=== PATIENT | male | born 1970 | race Caucasian/White ===

== ENCOUNTER 2018-03-03 11:56 | Day surgery (SDC) | payer OTHER ==
[~2018-03-03] VITALS: Ht 190.5 cm; Wt 105.0 kg
[2018-03-03] MEDS ORDERED: VITAMIN B (12:25)
[2018-03-03] MEDS ORDERED: OMEPRAZOLE (12:25)
[2018-03-03] MEDS ORDERED: MAGNESIUM CITRATE (12:26)
[2018-03-03 12:35] VITALS: BP 147/89; PULSE 71; RESP 36
--- NOTE | 2018-03-03 12:42 | PREAC ---
Date/Time of Note Date/Time of Note DATE: 03/03/18 TIME: 12:41 Anesthesia Eval and Record Evaluation Time Pre-Procedure Interview DATE: 03/03/18 TIME: 12:41 Age 47 Sex male NPO: 8 hrs Preoperative diagnosis gerd, abdominal pain Planned procedure egd and biopsies Past Medical History Past Medical History: Includes (gerd) Surgery & Anesthesia Issues No known issue Meds Anticoagulation: No Beta Yamileth within 24 hr: No Reason Beta Yamileth not given: Pt. not on B-Yamileth Reported Medications [Magnesium Citrate] No Conflict Check 03/03/18 [Vitamin B] No Conflict Check 03/03/18 [Omeprazole] No Conflict Check 03/03/18 Meds reviewed: Yes Allergies Coded Allergies: clarithromycin (Verified Allergy, Intermediate, HEADACHE, 03/03/18) Allergies Reviewed: Yes Labs/Studies Labs Reviewed: Reviewed by anesthesiologist test: N/A Pre-procedure Exam Airway: Adequate mouth opening, Adequate thyromental dist Mallampati: Mallampati II Teeth: Normal Lung: Normal Heart: Normal ASA Physical Status ASA physical status: 1 Emergency: None Planned Anesthetic General/MAC: MAC Planned Pain Management Parenteral pain med Pre-operative Attestations Prior to commencing anesthesia and surgery, the patient was re-evaluated, there was verification of: *The patient's identity *The results of appropriate recent lab work and preoperative vital signs *The above evaluation not changing prior to induction *Anesthetic plan, risk benefits, alternative and complications discussed with patient/family; questions answered; patient/family understands, accepts and wishes to proceed. Nilo Mayer M.D. Mar 03, 2018 12:42
[2018-03-03] MEDS ORDERED: LIDOCAINE 100 MG SYRINGE ONE (12:44)
[2018-03-03] MEDS ORDERED: FENTAnyl 50 MCG/ML VIAL ONE (12:44)
[2018-03-03] MEDS ORDERED: PROPOFOL 40 ML ONE (12:44)
[2018-03-03 12:50] VITALS: Ht 190.5 cm; Wt 105.0 kg
[2018-03-03] MEDS ORDERED: HYDROmorphONE 1 MG/5 ML IV SYRINGE IV PRN ×3 (13:00)
[2018-03-03] MEDS ORDERED: MIDAZOLAM 1 MG/ML 2 ML INJ IV PRN (13:00)
[2018-03-03] MEDS ORDERED: TRIMETHOBENZAMIDE 100 MG/ML VIAL IM PRN (13:00)
[2018-03-03] MEDS ORDERED: OXYCODONE/ACETAMINOPHEN (5/325) TAB PO PRN ×2 (13:00)
[2018-03-03] MEDS ORDERED: LABETALOL HCL 20MG INJ IV PRN (13:00)
[2018-03-03] MEDS ORDERED: MEPERIDINE 25 MG INJ IV PRN (13:00)
[2018-03-03] MEDS ORDERED: ALBUTEROL 0.083% (NEB) 2.5 MG/3 ML AMP HHN PRN (13:00)
[2018-03-03] MEDS ORDERED: FENTAnyl 50 MCG/ML VIAL IV PRN ×3 (13:00)
[2018-03-03] MEDS ORDERED: EPHEDrine SULFATE 50 MG/5 ML SYG IV PRN (13:00)
[2018-03-03] MEDS ORDERED: ONDANSETRON 4 MG INJ IV PRN (13:00)
[2018-03-03] MEDS ORDERED: DIPHENHYDRAMINE 50 MG INJ IV PRN (13:00)
[2018-03-03] MEDS ORDERED: hydrALAzine 20 MG INJ IV PRN (13:00)
[2018-03-03] MEDS ORDERED: IPRATROPIUM (NEB) 0.5 MG/2.5 ML AMP HHN PRN (13:00)
--- NOTE | 2018-03-03 13:05 | PAC ---
Date/Time of Note Date/Time of Note DATE: 03/03/18 TIME: 13:04 Post-Anesthesia Notes Post-Anesthesia Note Last documented vital signs bp:113/65 RR:14 So2:99 T:98 HR:77 Activity: WNL Respiratory function: WNL Cardiovascular function: WNL Mental status: Baseline Pain reasonably controlled: Yes Hydration appropriate: Yes Nausea/Vomiting absent: Yes Nilo Mayer M.D. Mar 03, 2018 13:05
[2018-03-03 13:35] VITALS: BP 157/96; PULSE 68; RESP 23
== END 2018-03-03 17:13 | disposition home or self-care (01) ==
LOC: GIL 11:56
PROVIDERS: ATTEND Internal Medicine Gastroenterology
DX: K29.30 Chronic superficial gastritis without bleeding (principal); K21.9 Gastro-esophageal reflux disease without esophagitis
CPT/HCPCS: 43239; 88305; 88312; J2001; J3010; Z7610